=== PATIENT | female | born 2005 | race Two or more races ===

== ENCOUNTER 2024-10-09 11:37 | Emergency (ER) | payer OTHER ==
[~2024-10-09] VITALS: Ht 160 cm; Wt 61.2 kg
[2024-10-09] MEDS ORDERED: DEXTROAMP-AMPHE10 MG PO (12:03)
[2024-10-09] MEDS ORDERED: SINGULAIR10 MG PO (13:08)
[2024-10-09] MEDS ORDERED: MEDROLPACK PO (13:08)
[2024-10-09] MEDS ORDERED: PEPCID AC20 MG PO (13:08)
[2024-10-09] MEDS ORDERED: AZITHROMYCIN500 MG PO (13:08)
[2024-10-09] MEDS ORDERED: BENZONATATE200 M1 PO (13:08)
== END 2024-10-09 13:16 | disposition home or self-care (01) ==
LOC: ER 11:39
DX: R53.81 Other malaise (principal); J02.9 Acute pharyngitis, unspecified